=== PATIENT | female | born 2000 | race Caucasian/White ===

== ENCOUNTER 2025-05-17 10:33 | Emergency (ER) | payer MEDICAID ==
[~2025-05-17] VITALS: Ht 152.4 cm; Wt 83.0 kg
[2025-05-17 10:45] VITALS: O2SAT 100
[2025-05-17 14:08] LABS: CLARITY URINE CLOUDY (CLEAR); GLUCOSE URINE NEGATIVE (NEGATIVE); KETONES URINE NEGATIVE (NEGATIVE); LEUKOCYTE ESTERASE URINE 3+ (NEGATIVE); NITRITE URINE NEGATIVE (NEGATIVE); OCCULT BLOOD URINE NEGATIVE (NEGATIVE); PH URINE 6.5 (4.5-8.0); PROTEIN URINE NEGATIVE (NEGATIVE); SPECIFIC GRAVITY URINE 1.007 (1.005-1.030); UROBILINOGEN URINE 0.2 E.U./dL (0.2-1.0)
[2025-05-17 14:50] LABS: BASOPHILS % 0.4 % (0.0-2.0); EOSINOPHILS % 0.9 % (0.0-5.0); HEMATOCRIT. 34.2 % (36.0-48.0); HEMOGLOBIN. 11.5 g/dL (12.0-16.0); LYMPHOCYTES % 19.7 % (20.0-50.0); MEAN PLATELET VOLUME 8.2 fl (7.4-10.4); MONOCYTES % 5.6 % (2.0-8.0); NEUTROPHILS % 73.4 % (40.0-76.0); PLATELET 268 x1000/uL (130-400); RED BLOOD CELL COUNT 3.96 mill/uL (4.2-5.4); RED CELL DISTRIBUTION WIDTH 15.3 % (11.6-14.6)
[2025-05-17 14:53] LABS: COLOR URINE STRAW (YELLOW)
[2025-05-17 14:55] LABS: BACTERIA URINE TRACE; RBC URINE NONE SEEN /hpf (0-2); SQUAMOUS EPITHELIAL CELL URINE 3+ /lpf (RARE/1+)
[2025-05-17 15:22] LABS: UREA NITROGEN BLOOD 5 mg/dL (9-23)
[2025-05-17 15:23] LABS: CREATININE 0.5 mg/dL (0.6-1.0)
[2025-05-17 15:25] LABS: ASPARTATE AMINOTRANSFERASE 17 IU/L (<34); BILIRUBIN DIRECT < 0.1 mg/dL (<=3.0); BILIRUBIN TOTAL 0.5 mg/dL (0.1-1.0); PROTEIN TOTAL 7.1 g/dL (6.0-8.3)
[2025-05-17] MEDS ORDERED: BO1 TP (15:30)
[2025-05-17] MEDS ORDERED: CEPH500C2 MT (15:30)
[2025-05-17 15:39] LABS: ERYTHROCYTE SEDIMENTATION RATE 78 mm/hr (0-20)
[2025-05-17 15:41] VITALS: BP 130/78; PULSE 80; RESP 18; TEMP 36.9; O2SAT 100
== END 2025-05-17 15:42 | disposition home or self-care (01) ==
LOC: ER 10:33
DX: M79.671 Pain in right foot (principal); I10 Essential (primary) hypertension; Z79.899 Other long term (current) drug therapy
CPT/HCPCS: 99283; 80076; 80048; 81003; 81025; 83690; 83735; 85025; 85651; 86850; 86900; 86901; 36415; A6449